=== PATIENT | female | born 1965 | race Caucasian/White ===

== ENCOUNTER 2017-02-20 08:29 | Outpatient (CLI) | payer BC, OTHER | END 2017-02-20 23:59 | DX: Z00.00 Encounter for general adult medical examination without abnormal findings (principal) ==

== ENCOUNTER 2017-03-28 14:42 | Outpatient (CLI) | payer OTHER, BC ==
--- NOTE | 2017-04-01 18:43 | Mammography Report ---
DIGITAL SCREENING MAMMOGRAM: 03/28/2017 CLINICAL INDICATION: A 51-year-old with family history of breast cancer for screening. COMPARISON: 12/2013, 04/2010. TECHNIQUE: Routine CC and MLO projections as well as bilateral laterally exaggerated craniocaudal vi ews were obtained of the breasts. The breasts demonstrate heterogeneously dense fibroglandular parenchyma bilaterally. Punctate, typic ally benign calcifications are present. No suspicious masses, clustered microcalcifications, or abdirashid ons of architectural distortion are identified. IMPRESSION: BENIGN FINDINGS. RECOMMENDATION: ROUTINE ANNUAL SCREENING UNLESS OTHERWISE CLINICALLY INDICATED. BIRADS CATEGORY: 2, BENIGN FINDINGS. STANDARD QUALIFYING STATEMENTS 1. This examination was reviewed with the aid of Computed-Aided Detection (CAD). 2. A negative or benign imaging report should not delay biopsy if clinically suspicious findings are present. Consider surgical consultation if warranted. More than 5% of cancers are not identified b y imaging. 3. Dense breasts may obscure an underlying neoplasm. JOB #: [id number] EXT JOB #:[id number]
== END 2017-03-28 14:43 | disposition home or self-care (01) ==
LOC: DI.N 14:42
PROVIDERS: ATTEND Family Medicine
DX: Z12.31 Encounter for screening mammogram for malignant neoplasm of breast (principal); Z80.3 Family history of malignant neoplasm of breast
CPT/HCPCS: 77067

== ENCOUNTER 2017-06-29 03:23 | Emergency (ER) | payer OTHER, BC ==
[2017-06-29 03:29] VITALS: BP 152/94
--- NOTE | 2017-06-29 03:37 | ED Physician Documentation ---
PD HPI HEENT - Stated complaint Stated Complaint: THROAT PX - Chief complaint Chief Complaint: Heent - History obtained from History obtained from: Patient - History of Present Illness Timing - onset: Yesterday Timing - details: Gradual onset, Constant Pain level now: 5 Location: Throat Improves: Nothing Worsens: Swalllowing Associated symptoms: No: Fever Similar symptoms before: Has not had sx before Recently seen: Not recently seen Review of Systems Constitutional: reports: Chills, Sweats. denies: Fever Throat: reports: Sore throat Respiratory: denies: Cough PD PAST MEDICAL HISTORY - Past Medical History Past Medical History: No - Past Surgical History Past Surgical History: Yes General: Appendectomy - Present Medications Home Medications: Ambulatory Orders Medication Instructions Recorded Confirmed Clindamycin HCl 300 mg PO Q6HR 7 Days 06/29/17 - Allergies Allergies/Adverse Reactions: Allergies Allergy/AdvReac Type Severity Reaction Status Date / Time No Known Drug Allergies Allergy Verified 06/29/17 03:27 - Social History Does the pt smoke?: No Smoking Status: Never smoker Does the pt drink ETOH?: Yes Does the pt have substance abuse?: No - Immunizations Immunizations are current?: Yes - POLST Patient has POLST: No PD ED PE NORMAL - Vitals Vital signs reviewed: Yes - General General: Alert and oriented X 3, No acute distress, Well developed/nourished - HEENT HEENT: Moist mucous membranes - Neck Neck: Supple, no meningeal sign PD ED PE EXPANDED - HEENT HEENT: Pharyngeal erythema, Swollen tonsils, Tonsillar exudate Results - Vitals Vitals: Vital Signs - 24 hr 06/29/17 06/29/17 03:27 04:30 Temperature 37.7 C H Heart Rate 108 H 91 Respiratory 16 16 Rate Blood Pressure 152/94 H O2 Saturation 99 98 Oxygen O2 Source Room air - Labs Labs: Laboratory Tests 06/29/17 03:50 Group A Strep Rapid Negative PD MEDICAL DECISION MAKING - ED course Complexity details: reviewed results, re-evaluated patient, considered differential, d/w patient Departure - Departure Disposition: 01 Home, Self Care Clinical Impression: Pharyngitis Condition: Good Instructions: ED Strep Pharyngitis Poss Follow-Up: Helen Vallejo MD [Primary Care Provider] - Prescriptions: Clindamycin HCl 300 mg PO Q6HR 7 Days Discharge Date/Time: 06/29/17 04:30
[2017-06-29 04:05] LABS: RAPID STREP SCREEN REAGENT QC YELLOW (YELLOW)
[2017-06-29] MEDS ORDERED: CLINDAMYCIN 150 MG CAPSULE PO STA (04:22)
[2017-06-29] MEDS ORDERED: DEXAMETHASONE 10 MG/ML VIAL PO STA (04:22)
[2017-06-29] MEDS ORDERED: DEXAMETHASONE 10 MG/ML VIAL ONE (04:29)
[2017-06-29] MEDS ORDERED: CLINDAMYCIN 150 MG CAPSULE PO ONE (04:29)
== END 2017-06-29 04:30 | disposition home or self-care (01) ==
LOC: ED 03:23
DX: J02.9 Acute pharyngitis, unspecified (principal)
CPT/HCPCS: 87070; 87430; 99282; 99283; A9270

== ENCOUNTER 2017-07-30 13:26 | Outpatient (CLI) | payer OTHER, BC ==
[2017-07-31 15:51] LABS: TEST RESULT REPORT
== END 2017-07-30 13:27 | disposition home or self-care (01) ==
LOC: LAB.R 13:26
PROVIDERS: ATTEND Family Medicine
DX: R19.7 Diarrhea, unspecified (principal)
CPT/HCPCS: 81599; 82270; 83630; 87045; 87046; 87077; 87177; 87209; 87329; 87493

== ENCOUNTER 2018-06-19 08:00 | Outpatient (CLI) | payer OTHER ==
[2018-06-19 18:23] LABS: BASOPHILS # (AUTO) 0.1 10^3/uL (0.0-0.1); BASOPHILS % (AUTO) 1.2 %; EOSINOPHILS # (AUTO) 0.2 10^3/uL (0.0-0.7); EOSINOPHILS % (AUTO) 3.4 %; HGB - HEMOGLOBIN 12.5 g/dL (12.0-16.0); LYMPHOCYTES # (AUTO) 2.7 10^3/uL (1.5-3.5); LYMPHOCYTES % (AUTO) 36.9 %; MEAN CORPUSCULAR HGB CONC 33.3 g/dL (32.0-36.0); MEAN CORPUSCULAR VOLUME 90.1 fL (81.0-99.0); MEAN PLATELET VOLUME 8.5 fL (7.9-10.8); MONOCYTES # (AUTO) 0.6 10^3/uL (0.0-1.0); MONOCYTES % (AUTO) 7.7 %; NEUTROPHILS # (AUTO) 3.7 10^3/uL (1.5-6.6); NEUTROPHILS % (AUTO) 50.8 %; PLT - PLATELET COUNT 290 10^3/uL (130-450); RED BLOOD COUNT 4.17 10^6/uL (4.20-5.40); RED CELL DISTRIBUTION WIDTH 13.9 % (12.0-15.0); WHITE BLOOD COUNT 7.3 x10^3/uL (4.8-10.8)
[2018-06-19 18:33] LABS: ALBUMIN 4.4 g/dL (3.2-5.5); ALBUMIN/GLOBULIN RATIO 1.2 (1.0-2.2); BILIRUBIN,TOTAL 0.4 mg/dL (0.2-1.0); CALCIUM 9.9 mg/dL (8.5-10.3); CREATININE 0.7 mg/dL (0.4-1.0)
== END 2018-06-19 08:01 ==
LOC: LAB 08:00
PROVIDERS: ATTEND Family Medicine
DX: R10.11 Right upper quadrant pain (principal)
CPT/HCPCS: 80053; 82150; 83690; 85025

== ENCOUNTER 2018-06-19 17:51 | Outpatient (CLI) | payer OTHER ==
--- NOTE | 2018-06-21 00:19 | XRAY Report ---
Procedure Date: 06/19/2018 Accession Number: [id number] / [id number] Procedure: XR - Abdomen 2 View X-Ray CPT Code: 81300 FULL RESULT: EXAM: ABDOMEN RADIOGRAPHY EXAM DATE: 06/19/2018 06:43 PM. CLINICAL HISTORY: Abdominal pain, right upper quadrant. COMPARISON: 06/25/2006 and 03/26/2011. TECHNIQUE: 2 views. FINDINGS: Lung Bases: Unremarkable. Bowel Gas Pattern: Within normal limits. No dilated loops or abnormal fluid levels. Free Air: None. Other: Clips are noted in the right upper quadrant of the abdomen. IMPRESSION: 1. Nonobstructive bowel gas pattern. 2. Postoperative changes noted in the right upper quadrant. [facility]
== END 2018-06-19 17:52 | disposition home or self-care (01) ==
LOC: DI 17:51
PROVIDERS: ATTEND Family Medicine
DX: R10.11 Right upper quadrant pain (principal)
CPT/HCPCS: 36415; 74019; 80053; 82150; 83690; 85025

== ENCOUNTER 2022-01-04 09:39 | Outpatient (CLI) | payer OTHER ==
[2022-01-04 12:16] LABS: BASOPHILS # (AUTO) 0.1 10^3/uL (0.0-0.1); BASOPHILS % (AUTO) 1.2 %; EOSINOPHILS # (AUTO) 0.3 10^3/uL (0.0-0.7); HCT - HEMATOCRIT 42.1 % (37.0-47.0); HGB - HEMOGLOBIN 13.7 g/dL (12.0-16.0); LYMPHOCYTES # (AUTO) 2.1 10^3/uL (1.5-3.5); LYMPHOCYTES % (AUTO) 25.5 %; MEAN CORPUSCULAR HGB CONC 32.5 g/dL (32.0-36.0); MEAN CORPUSCULAR VOLUME 92.1 fL (81.0-99.0); MONOCYTES # (AUTO) 0.8 10^3/uL (0.0-1.0); MONOCYTES % (AUTO) 9.2 %; NEUTROPHILS % (AUTO) 59.9 %; PLT - PLATELET COUNT 329 10^3/uL (130-450); RED BLOOD COUNT 4.57 10^6/uL (4.20-5.40); RED CELL DISTRIBUTION WIDTH 15.8 % (12.0-15.0); WHITE BLOOD COUNT 8.3 x10^3/uL (4.8-10.8)
[2022-01-04 13:31] LABS: ALBUMIN 4.3 g/dL (3.2-5.5); ALBUMIN/GLOBULIN RATIO 1.2 (1.0-2.2); BILIRUBIN,TOTAL 0.8 mg/dL (0.2-1.0); CALCIUM 9.8 mg/dL (8.5-10.3); CREATININE 0.6 mg/dL (0.4-1.0); POTASSIUM 3.7 mmol/L (3.5-5.0)
[2022-01-07 22:27] LABS: ANA SCREEN NEGATIVE (NEGATIVE)
== END 2022-01-04 09:40 | disposition home or self-care (01) ==
LOC: LAB.N 09:39
PROVIDERS: ATTEND Nurse Practitioner Family
DX: R21 Rash and other nonspecific skin eruption (principal)
CPT/HCPCS: 36415; 80053; 81599; 82785; 85025; 85651; 86003; 86038

== ENCOUNTER 2022-01-14 10:40 | Outpatient (CLI) | payer OTHER ==
[2022-01-14 17:56] LABS: BASOPHILS # (AUTO) 0.1 10^3/uL (0.0-0.1); BASOPHILS % (AUTO) 1.5 %; EOSINOPHILS # (AUTO) 0.3 10^3/uL (0.0-0.7); EOSINOPHILS % (AUTO) 3.3 %; HCT - HEMATOCRIT 43.7 % (37.0-47.0); LYMPHOCYTES # (AUTO) 2.2 10^3/uL (1.5-3.5); LYMPHOCYTES % (AUTO) 26.9 %; MEAN CORPUSCULAR HEMOGLOBIN 30.1 pg (27.0-31.0); MONOCYTES # (AUTO) 0.8 10^3/uL (0.0-1.0); NEUTROPHILS # (AUTO) 4.6 10^3/uL (1.5-6.6); PLT - PLATELET COUNT 393 10^3/uL (130-450); RED BLOOD COUNT 4.65 10^6/uL (4.20-5.40); RED CELL DISTRIBUTION WIDTH 15.9 % (12.0-15.0)
[2022-01-14 18:55] LABS: ALBUMIN 4.3 g/dL (3.2-5.5); BILIRUBIN,DIRECT 0.1 mg/dL (0.1-0.5); BILIRUBIN,TOTAL 0.5 mg/dL (0.2-1.0)
[2022-01-15 15:25] LABS: HEPATITIS B CORE AB TOTAL NON-REACTIVE (NON-REACTIVE)
[2022-01-15 15:27] LABS: HEPATITIS B SURFACE ANTIGEN NON-REACTIVE (NON-REACTIVE); HEPATITIS C ANTIBODY NON-REACTIVE (NON-REACTIVE)
[2022-01-16 21:46] LABS: HCV RNA QNT <1.18 NOT DETECTED Log IU/mL; HCV RNA QUANT RT PCR <15 NOT DETECTED IU/mL
== END 2022-01-14 10:41 | disposition home or self-care (01) ==
LOC: LAB.N 10:40
PROVIDERS: ATTEND Nurse Practitioner Family
DX: R74.8 Abnormal levels of other serum enzymes (principal); R21 Rash and other nonspecific skin eruption
CPT/HCPCS: 36415; 80076; 85025; 86317; 86704; 86709; 86803; 87340; 87350; 87522